=== PATIENT | male | born 1975 | race Caucasian/White ===

== ENCOUNTER 2021-01-30 10:46 | Day surgery (SDC) | payer OTHER ==
[~2021-01-30] VITALS: Ht 177.8 cm; Wt 93.5 kg
[~2021-01-30 10:46] MED LIST: CYCLOBENZAPRINE5 MG PO; GABA300 PO; MOBIC15 MG PO; OXYC5 PO
--- NOTE | 2021-01-30 11:31 | NUR ---
01/30/21 1130 Makayla Tineo TIMEOUT AND SITE CHECK AT [address] RDZ FOR ISB.
== END 2021-01-30 13:40 | disposition home or self-care (01) ==
LOC: ORSCSDS 10:46
PROVIDERS: Orthopaedic Surgery
PROC: 0RHK44Z Insertion of Internal Fixation Device into Left Shoulder Joint, Percutaneous Endoscopic Approach (ICD-10-PCS; principal; 2021-01-30 11:45)
PROC: 0LS44ZZ Reposition Left Upper Arm Tendon, Percutaneous Endoscopic Approach (ICD-10-PCS; principal; 2021-01-30 11:45)
PROC: 0RNK4ZZ Release Left Shoulder Joint, Percutaneous Endoscopic Approach (ICD-10-PCS; principal; 2021-01-30 11:45)
PROC: 0LQ24ZZ Repair Left Shoulder Tendon, Percutaneous Endoscopic Approach (ICD-10-PCS; principal; 2021-01-30 11:45)
DX: S46.002A Unspecified injury of muscle(s) and tendon(s) of the rotator cuff of left shoulder, initial encounter (principal); M75.22 Bicipital tendinitis, left shoulder; M75.42 Impingement syndrome of left shoulder
CPT/HCPCS: C1713; J0171; J0690; J1100; J1885; J2001; J2250; J2405; J2550; J2704; J3010; J7120

== ENCOUNTER → 2022-01-30 | Outpatient (CLI) | payer OTHER | END | disposition home or self-care (01) | LOC: LAB 16:14 → LAB SHORT 16:14 | DX: M54.50 Low back pain, unspecified (principal); N50.819 Testicular pain, unspecified | CPT/HCPCS: 87086 ==